=== PATIENT | male | born 1980 ===

== ENCOUNTER → 2017-03-04 | Outpatient (REF) ==
[2017-03-04 13:55] LABS: BF MONONUCLEAR CELL % 50.1 % (0-0); BF POLYMORPHONUCLEAR CELL % 49.9 % (0-0); RBC BODY FLUID 4 10^3/uL (<2); WBC BODY FLUID 2449 /uL (0-10)
[2017-03-04 14:03] LABS: APPEARANCE, BODY FLUID CLOUDY (CLEAR); BF DIFF IF INDICATED? YES (NO); SYNOVIAL FLUID COLOR ORANGE (YELLOW)
[2017-03-04 14:05] LABS: CRYSTALS, BODY FLUID URIC ACID (NONE SEEN); SOURCE, BODY FLUID OTHER; SOURCE, BODY FLUID CRYSTALS LFT KNEE
== END ==
LOC: M LAB REF 13:34
DX: M25.562 Pain in left knee (principal)